=== PATIENT | male | born 1950 | race Two or more races ===

== ENCOUNTER 2017-02-22 16:09 | Emergency (ER) | payer MEDICARE, OTHER ==
[~2017-02-22] VITALS: Ht 182.9 cm; Wt 81.6 kg
[2017-02-22 16:30] VITALS: BP 114/83
== END 2017-02-22 16:52 | disposition home or self-care (01) ==
LOC: ER 16:15
DX: T14.8XXA Other injury of unspecified body region, initial encounter (principal); W57.XXXA Bitten or stung by nonvenomous insect and other nonvenomous arthropods, initial encounter; Y93.89 Activity, other specified; Y92.89 Other specified places as the place of occurrence of the external cause; Y99.8 Other external cause status
CPT/HCPCS: 99283; A4606; Z7610

== ENCOUNTER 2020-09-05 04:30 | Emergency (ER) | payer MEDICARE, MEDICAID ==
[~2020-09-05] VITALS: Ht 180.3 cm; Wt 77.1 kg
[2020-09-05 04:31] VITALS: BP 113/69
--- NOTE | 2020-09-05 04:33 | NUR ---
pt bibra c/o sob when sleeping [id number]. Pt [id number] breathing evenly and unlabored. Pt states, "it only happens when i first wake up and then i cough out phlegm, then im alright". at bedside. Pt attached to monitor. staturating 99% on RA. Pt given call light within reach
--- NOTE | 2020-09-05 04:50 | NUR ---
xray at bedside
[2020-09-05] MEDS ORDERED: ALBU8.5H8 INH (05:00)
--- NOTE | 2020-09-05 05:43 | NUR ---
called evangelina to have images read
== END 2020-09-05 06:18 | disposition home or self-care (01) ==
LOC: ER 04:33
DX: R06.00 Dyspnea, unspecified (principal); F20.9 Schizophrenia, unspecified; F17.200 Nicotine dependence, unspecified, uncomplicated; Z60.2 Problems related to living alone; Z79.899 Other long term (current) drug therapy
CPT/HCPCS: 71045-TC

== ENCOUNTER 2021-02-12 13:44 | Emergency (ER) | payer MEDICARE, OTHER ==
[~2021-02-12] VITALS: Ht 180.3 cm; Wt 77.1 kg
[~2021-02-12 13:44] MED LIST: ALBU8.5H8 INH
--- NOTE | 2021-02-12 13:44 | NUR ---
BILATERAL LOWER EXTREMITY PAIN AND TINGLING SENSATION X3 MONTH, DENIES FALLS OR ANY TRAUMA. PT STATED THAT ITS DIFFICULT TO WALK AT TIMES AND HE FEELS PRESSURE WITH TINGLING. VITALS ARE WITHIN NORMAL LIMITS. BREATHING IS EVEN AND UNLABORED.
--- NOTE | 2021-02-12 13:55 | NUR ---
DR DUMONT AT BEDSIDE
[2021-02-12] MEDS ORDERED: GABA100C PO (13:58)
--- NOTE | 2021-02-12 14:07 | NUR ---
Patient discharged to home in stable condition. Written and verbal after care instructions given. Patient verbalizes understanding of instruction.
[2021-02-12 14:09] VITALS: BP 129/81
== END 2021-02-12 14:10 | disposition home or self-care (01) ==
LOC: ER 13:46
DX: G62.9 Polyneuropathy, unspecified (principal); F20.9 Schizophrenia, unspecified; Z60.2 Problems related to living alone; Z79.899 Other long term (current) drug therapy

== ENCOUNTER 2021-03-15 17:02 | Emergency (ER) | payer MEDICARE, OTHER ==
[~2021-03-15] VITALS: Ht 180.3 cm; Wt 81.6 kg
[~2021-03-15 17:02] MED LIST changes: +GABA100C PO
[2021-03-15 17:08] VITALS: BP 116/63
[2021-03-15] MEDS ORDERED: ALBU8.5H8 INH (17:32)
--- NOTE | 2021-03-15 17:38 | NUR ---
Patient discharged to home in stable condition. Written and verbal after care instructions given. Patient verbalizes understanding of instruction.
== END 2021-03-15 17:38 | disposition home or self-care (01) ==
LOC: ER 17:03
DX: J45.909 Unspecified asthma, uncomplicated (principal); F20.9 Schizophrenia, unspecified; Z60.2 Problems related to living alone; Z79.899 Other long term (current) drug therapy

== ENCOUNTER 2022-04-06 09:09 | Emergency (ER) | payer MEDICARE, OTHER ==
[~2022-04-06] VITALS: Ht 180.3 cm; Wt 81.6 kg
[2022-04-06 09:15] VITALS: BP 140/81
[2022-04-06] MEDS ORDERED: [UNRECOGNIZED DRUG - OTHER] (09:21)
[2022-04-06] MEDS ORDERED: FLUP1TAB8 PO (09:21)
[2022-04-06] MEDS ORDERED: BENZTROPINE MESYLATE (1 MG) 1 MG TABLET ONE (09:29)
[2022-04-06] MEDS ORDERED: FLUPHENAZINE HCL 1 MG TABLET PO SCH (09:30)
[2022-04-06] MEDS ORDERED: BENZTROPINE MESYLATE (1 MG) 1 MG TABLET PO ONE (09:30)
== END 2022-04-06 10:34 | disposition home or self-care (01) ==
LOC: ER 09:19
DX: F20.9 Schizophrenia, unspecified (principal); J45.909 Unspecified asthma, uncomplicated; F17.200 Nicotine dependence, unspecified, uncomplicated; Z60.2 Problems related to living alone; Z79.899 Other long term (current) drug therapy

== ENCOUNTER 2023-05-29 18:01 | Emergency (ER) | payer MEDICARE, OTHER ==
[~2023-05-29] VITALS: Ht 180.3 cm; Wt 81.6 kg
[~2023-05-29 18:01] MED LIST changes: +CEPH500C2 PO; +FLUP1TAB8 PO; +[UNRECOGNIZED DRUG - OTHER]
[2023-05-29 18:57] VITALS: BP 143/81; TEMP 98.6
[2023-05-29 19:20] VITALS: O2SAT 97
[2023-05-29] MEDS ORDERED: BENZTROPINE MESYLATE (1 MG) 1 MG TABLET ONE (20:06)
[2023-05-29] MEDS: BENZTROPINE MESYLATE (1 MG) 1 MG TABLET PO ONE (20:10)
[2023-05-29] MEDS: FLUPHENAZINE HCL 1 MG TABLET PO STA (20:11)
[2023-05-29] MEDS ORDERED: FLUP1TAB8 PO (20:19)
[2023-05-29] MEDS ORDERED: BENZ2TAB7 PO (20:19)
== END 2023-05-29 20:26 | disposition home or self-care (01) ==
LOC: ER 18:07
DX: Z76.0 Encounter for issue of repeat prescription (principal); J45.909 Unspecified asthma, uncomplicated; F20.9 Schizophrenia, unspecified; F17.200 Nicotine dependence, unspecified, uncomplicated; Z79.899 Other long term (current) drug therapy; Z60.2 Problems related to living alone

== ENCOUNTER 2023-06-17 22:29 | Emergency (ER) | payer MEDICARE, OTHER ==
[~2023-06-17] VITALS: Ht 180.3 cm; Wt 62.6 kg
[~2023-06-17 22:29] MED LIST changes: +BENZ2TAB7 PO
[2023-06-18 01:02] LABS: BASOPHILS # (AUTO) 0.1 K/uL (0.0-0.2); BASOPHILS % (AUTO) 0.4 % (0.0-2.0); EOSINOPHILS % (AUTO) 0.1 % (0.0-6.0); HEMATOCRIT 38 % (39-51); HEMOGLOBIN 12.7 g/dL (13.5-17.5); LYMPHOCYTES # (AUTO) 0.9 K/uL (0.8-4.8); LYMPHOCYTES % (AUTO) 5.1 % (20.0-44.0); MEAN CORPUSCULAR HEMOGLOBIN 30 PG (26.0-33.0); MEAN CORPUSCULAR HGB CONC 34 g/dl (31.0-36.0); MEAN CORPUSCULAR VOLUME 91 fL (80-96); MONOCYTES % (AUTO) 17.5 % (2.0-12.0); NEUTROPHILS # (AUTO) 13.2 K/uL (1.8-8.9); NEUTROPHILS % (AUTO) 76.9 % (43.0-81.0); PLATELET COUNT (AUTO) 238 K/uL (150-450); RED BLOOD CELL COUNT(AUTO) 4.19 MIL/uL (4.5-6.0); RED CELL DISTRIBUTION WIDTH 14.4 % (11.5-15.0); WHITE BLOOD COUNT (AUTO) 17.1 K/uL (4.3-11.0)
[2023-06-18 01:10] LABS: ACETAMINOPHEN 0 ug/ml (10-30); ALANINE AMINOTRANSFERASE 31 U/L (12-78); ALBUMIN 2.9 g/dL (3.4-5.0); ALCOHOL, BLOOD < 3 mg/dL (0-10); ALKALINE PHOSPHATASE 127 U/L (46-116); ASPARTATE AMINOTRANSFERASE 48 U/L (15-37); BILIRUBIN,DIRECT 0.3 mg/dL (0.0-0.2); BILIRUBIN,TOTAL 0.8 mg/dL (0.2-1.0); CALCIUM, SERUM 9.4 mg/dL (8.5-10.1); CARBON DIOXIDE 28 mmol/L (21-32); CHLORIDE 94 mmol/L (98-107); GLUCOSE 120 mg/dL (74-106); POTASSIUM 3.8 mmol/L (3.5-5.1); SALICYLATE 3.5 mg/dL (2.8-20.0); SODIUM SERUM 131 mmol/L (136-145); TOTAL PROTEIN, SERUM 7.5 g/dL (6.4-8.2); UREA NITROGEN, BLOOD 22 mg/dL (7-18)
[2023-06-18 01:20] LABS: APPEARANCE,URINE SLIGHTLY CLOUDY (CLEAR); BILIRUBIN,URINE NEGATIVE (NEGATIVE); BLOOD, URINE 2+ Ery/uL (NEGATIVE); COLOR,URINE YELLOW (YELLOW); KETONES,URINE NEGATIVE (NEGATIVE); LEUKOCYTE ESTERASE ,URINE 3+ (NEGATIVE); NITRITE, URINE NEGATIVE (NEGATIVE); PROTEIN,URINE 2+ mg/dl (NEGATIVE); UGLUCOSE NEGATIVE (NEGATIVE)
[2023-06-18 01:31] LABS: AMPHETAMINE, URINE NEGATIVE (NEGATIVE); BARBITURATE, URINE NEGATIVE (NEGATIVE); BENZODIAZEPINE, URINE NEGATIVE (NEGATIVE); CANNABINOID, URINE NEGATIVE (NEGATIVE); COCCAINE, URINE NEGATIVE (NEGATIVE); OPIATE, URINE NEGATIVE (NEGATIVE); PHENCYCLIDINE SCREEN,URINE NEGATIVE (NEGATIVE)
[2023-06-18 02:05] LABS: ADD URINE CULTURE YES; BACTERIA,URINE Many /HPF (None Seen); SQUAMOUS EPITHELIAL CELL,UR Few /HPF (None Seen); WBC,URINE 21-50 /HPF (0-3)
[2023-06-18 02:45] LABS: LYMPHOCYTES % (MANUAL) 3 % (16-48); MONOCYTES % (MANUAL) 20 % (0-11.0); NEUTROPHILS % (MANUAL) 77 (42-76); PLATELET ESTIMATE ADEQUATE
[2023-06-18] MEDS ORDERED: CIPROFLOXACIN HCL 500 MG TABLET ONE (03:33)
[2023-06-18] MEDS: CIPROFLOXACIN HCL 500 MG TABLET PO ONE (03:35)
[2023-06-18] MEDS ORDERED: CIPR500T5 PO (12:48)
[2023-06-18 13:33] VITALS: BP 126/79; TEMP 98.4; O2SAT 97
== END 2023-06-18 13:34 ==
LOC: ER 22:34
DX: R45.851 Suicidal ideations (principal); N39.0 Urinary tract infection, site not specified; D72.829 Elevated white blood cell count, unspecified; J45.909 Unspecified asthma, uncomplicated; F20.9 Schizophrenia, unspecified; F17.200 Nicotine dependence, unspecified, uncomplicated; Z79.899 Other long term (current) drug therapy; Z60.2 Problems related to living alone; Z20.822 Contact with and (suspected) exposure to COVID-19
CPT/HCPCS: 36415; 71045-TC; 80048-TC; 80076-TC; 81001; 85025-TC; 87086-TC; G0480

== ENCOUNTER 2023-06-30 00:08 | Emergency (ER) | payer MEDICARE, OTHER ==
[~2023-06-30] VITALS: Ht 180.3 cm; Wt 81.6 kg
[~2023-06-30 00:08] MED LIST changes: +CIPR500T5 PO
[2023-06-30 00:39] VITALS: BP 134/76; TEMP 98.1; O2SAT 98
[2023-06-30] MEDS ORDERED: BENZTROPINE MESYLATE (1 MG) 1 MG TABLET ONE (01:02)
[2023-06-30] MEDS ORDERED: FLUP1TAB8 PO (01:11)
[2023-06-30] MEDS ORDERED: BENZ1TAB7 PO (01:11)
[2023-06-30] MEDS: FLUPHENAZINE HCL 1 MG TABLET PO SCH (01:28)
[2023-06-30] MEDS: BENZTROPINE MESYLATE (1 MG) 1 MG TABLET PO ONE (01:28)
== END 2023-06-30 01:30 | disposition home or self-care (01) ==
LOC: ER 00:19
DX: F20.9 Schizophrenia, unspecified (principal); Z76.0 Encounter for issue of repeat prescription; J45.909 Unspecified asthma, uncomplicated; F17.200 Nicotine dependence, unspecified, uncomplicated; Z79.899 Other long term (current) drug therapy; Z60.2 Problems related to living alone

== ENCOUNTER 2024-02-27 13:15 | Emergency (ER) | payer MEDICARE, OTHER ==
[~2024-02-27] VITALS: Ht 180.3 cm; Wt 81.6 kg
[~2024-02-27 13:15] MED LIST changes: +BENZ1TAB7 PO
[2024-02-27 15:17] VITALS: BP 110/54; TEMP 97.5; O2SAT 99
[2024-02-27] MEDS: BENZTROPINE MESYLATE (1 MG) 1 MG TABLET PO ONE (15:30)
[2024-02-27] MEDS ORDERED: BENZ1TAB7 PO (15:36)
[2024-02-27] MEDS ORDERED: FLUP1TAB8 PO (15:36)
[2024-02-27] MEDS: FLUPHENAZINE HCL 1 MG TABLET PO SCH (16:30)
== END 2024-02-27 15:48 | disposition home or self-care (01) ==
LOC: ER 13:15
DX: J45.909 Unspecified asthma, uncomplicated (principal); F20.9 Schizophrenia, unspecified; F17.200 Nicotine dependence, unspecified, uncomplicated; Z76.0 Encounter for issue of repeat prescription; Z79.899 Other long term (current) drug therapy; Z60.2 Problems related to living alone

== ENCOUNTER 2024-10-24 21:12 | Emergency (ER) | payer MEDICARE, OTHER | END 2024-10-25 00:41 | disposition left against medical advice (07) | LOC: ER 21:24 | DX: Z00.00 Encounter for general adult medical examination without abnormal findings (principal); Z53.21 Procedure and treatment not carried out due to patient leaving prior to being seen by health care provider ==